=== PATIENT | male | born 1985 ===

== ENCOUNTER 2018-06-10 13:01 | Observation (INO) | payer OTHER ==
[2018-06-10 14:28] LABS: BASO # 0.1 K/uL (0.0-0.2); BASO % 0.8 % (0.0-2.0); EOS # 0.1 K/uL (0.0-0.7); EOS % 1.3 % (0.0-4.0); LYMPH # 2.7 K/uL (1.0-4.3); LYMPH % 32.4 % (20.0-40.0); MEAN CELL VOLUME 93.3 fl (80.0-94.0); MEAN CORPUSCULAR HEMOGLOBIN 31.2 pg (27.0-31.0); MEAN CORPUSCULAR HGB CONC 33.4 g/dL (33.0-37.0); MEAN PLATELET VOLUME 8.5 fl (7.2-11.7); MONO # 0.6 K/uL (0.0-0.8); MONO % 7.8 % (0.0-10.0); NEUT # 4.7 K/uL (1.8-7.0); NEUT % 57.7 % (50.0-75.0); RBC 4.5 Mil/uL (4.40-5.90); RED CELL DISTRIBUTION WIDTH 13.1 % (11.5-14.5); WHITE BLOOD COUNT 8.2 K/uL (4.8-10.8)
[2018-06-10 14:39] LABS: URINE BACTERIA RARE (<OCC); URINE BILIRUBIN NEGATIVE (NEGATIVE); URINE BLOOD NEGATIVE (NEGATIVE); URINE CLARITY CLEAR (Clear); URINE COLOR YELLOW (YELLOW); URINE GLUCOSE (UA) NEG (NEGATIVE); URINE LEUKOCYTE ESTERASE NEG Leu/uL (Negative); URINE PROTEIN NEGATIVE (NEGATIVE)
[2018-06-10 14:42] LABS: INR 1.1; PROTHROMBIN TIME 12.4 Seconds (9.8-13.1)
[2018-06-10 14:45] LABS: PARTIAL THROMBOPLASTIN TIME 33.5 Seconds (25.6-37.1)
--- NOTE | 2018-06-10 14:54 | RAD ---
Date of service: 06/10/2018 HISTORY: back pain COMPARISON: No prior. TECHNIQUE: Chest PA and lateral FINDINGS: LUNGS: No active pulmonary disease. PLEURA: No significant pleural effusion identified. No pneumothorax apparent. CARDIOVASCULAR: No aortic atherosclerotic calcification present. Normal cardiac size. No pulmonary vascular congestion. OSSEOUS STRUCTURES: No significant abnormalities. VISUALIZED UPPER ABDOMEN: Normal. OTHER FINDINGS: None. IMPRESSION: No acute cardiopulmonary disease appreciated.
[2018-06-10 15:08] LABS: BLOOD UREA NITROGEN 19 mg/dl (9-20); CALCIUM 9.4 mg/dL (8.4-10.2); GFR NON-AFRICAN AMERICAN > 60
--- NOTE | 2018-06-10 15:42 | ED PDOC ---
HPI: Back Time Seen by Provider: 06/10/18 13:24 Chief Complaint (Nursing): Back Pain Chief Complaint (Provider): Back pain History Per: Patient History/Exam Limitations: no limitations Onset/Duration Of Symptoms: Persistent Current Symptoms Are (Timing): Still Present Quality Of Discomfort: "Pain" Severity: Moderate Associated Symptoms: None Additional History Per: Patient Additional Complaint(s): 32yo male, comes to ER for evaluation of persistent lower back pain. Patient states he followed up with Dr. Noble for the back pain, and has not taken any medications for the symptoms. He denies any trauma or injury to his back; no complaints of weakness/numbness of lower extremity, bowel or bladder inconctinence, no saddle anesthesia. Patient has no additional complaints. PMD: Dr. Noble Past Medical History Reviewed: Historical Data, Nursing Documentation, Vital Signs Vital Signs: Last Vital Signs Temp 97.7 F 06/10/18 13:09 Pulse 57 L 06/10/18 13:09 Resp 16 06/10/18 13:09 BP 126/75 06/10/18 13:09 Pulse Ox 100 06/10/18 13:09 - Medical History PMH: No Chronic Diseases, Chronic Pain - Surgical History Surgical History: No Surg Hx - Family History Family History: States: No Known Family Hx - Home Medications Home Medications: Ambulatory Orders Medication Instructions Recorded RX: No Known Home Med 06/10/18 - Allergies Allergies/Adverse Reactions: Allergies Allergy/AdvReac Type Severity Reaction Status Date / Time No Known Allergies Allergy Verified 06/10/18 13:09 Review of Systems ROS Statement: Except As Marked, All Systems Reviewed And Found Negative (as per HPI) Genitourinary Male: Negative for: Incontinence Musculoskeletal: Positive for: Back Pain Neurological: Negative for: Weakness, Numbness Physical Exam - Reviewed Nursing Documentation Reviewed: Yes Vital Signs Reviewed: Yes - Physical Exam Appears: Positive for: Non-toxic Head Exam: Positive for: ATRAUMATIC, NORMAL INSPECTION, NORMOCEPHALIC Skin: Positive for: Normal Color Eye Exam: Positive for: Normal appearance, EOMI, PERRL Neck: Positive for: Normal, Painless ROM, Supple Cardiovascular/Chest: Positive for: Regular Rate, Rhythm. Negative for: Murmur, Tachycardia Respiratory: Positive for: Normal Breath Sounds. Negative for: Respiratory Distress Gastrointestinal/Abdominal: Positive for: Normal Exam Back: Positive for: Vertebral Tenderness (lumbar ), Other (paralumbar tenderness). Negative for: L CVA Tenderness, R CVA Tenderness Extremity: Positive for: Normal ROM. Negative for: Tenderness, Pedal Edema, Deformity Neurologic/Psych: Positive for: Alert, Oriented. Negative for: Motor/Sensory Deficits - Laboratory Results Result Diagrams: 06/10/18 13:45 06/10/18 13:45 Lab Results: PT 12.4 Seconds (9.8-13.1) 06/10/18 13:45 INR 1.1 06/10/18 13:45 APTT 33.5 Seconds (25.6-37.1) 06/10/18 13:45 Urine Color Yellow (YELLOW) 06/10/18 13:45 Urine Clarity Clear (Clear) 06/10/18 13:45 Urine pH 5.0 (5.0-8.0) 06/10/18 13:45 Ur Specific [place] 1.026 (1.003-1.030) 06/10/18 13:45 Urine Protein Negative mg/dL (NEGATIVE) 06/10/18 13:45 Urine Glucose (UA) Neg mg/dL (NEGATIVE) 06/10/18 13:45 Urine Ketones Negative mg/dL (NEGATIVE) 06/10/18 13:45 Urine Blood Negative (NEGATIVE) 06/10/18 13:45 Urine Nitrate Negative (NEGATIVE) 06/10/18 13:45 Urine Bilirubin Negative (NEGATIVE) 06/10/18 13:45 Urine Urobilinogen 1.0 mg/dL (0.2-1.0) 06/10/18 13:45 Ur Leukocyte Esterase Neg [place]/uL (Negative) 06/10/18 13:45 Urine RBC (Auto) 3 /hpf (0-3) 06/10/18 13:45 Urine Microscopic WBC 1 /hpf (0-5) 06/10/18 13:45 Urine Bacteria Rare (<OCC) 06/10/18 13:45 - ECG O2 Sat by Pulse Oximetry: 100 (RA) Pulse Ox Interpretation: Normal Medical Decision Making Medical Decision Making: Impression: Acute on chronic back pain Plan: -- Labs -- EKG [address] Tran, who accepts patient for admission due to acute on chronic back pain Plan of care discussed with Dr. Noble, who agrees. Discussed plan for admission with patient, who agrees. Scribe Attestation: Documented by Oralia Romeo acting as a scribe for Olivia Jameson MD Provider Attestation: All medical record entries made by the Scribe were at my direction and personally dictated by me. I have reviewed the chart and agree that the record accurately reflects my personal performance of the history, physical exam, medical decision making, and the department course for this patient. I have also personally directed, reviewed, and agree with the discharge instructions and disposition. Disposition - Clinical Impression Clinical Impression: Back pain - Patient ED Disposition Is Patient to be Admitted: Yes Discussed With DrMago: Viktor Tran Counseled Patient/Family Regarding: Studies Performed, Diagnosis - Disposition Disposition Time: 13:27 Condition: FAIR - Pt Status Changed To: Hospital Disposition Of: Inpatient - Admit Certification Admit to Inpatient:: After my assessment, the patient will require hospitalization for at least two midnights. This is because of the severity of symptoms shown, intensity of services needed, and/or the medical risk in this patient being treated as an outpatient. - POA Present On Arrival: None
--- NOTE | 2018-06-10 16:36 | CP.PCM.CON ---
History of Present Illness - History of Present Illness History of Present Illness: Neurosurgical consult: Dr. Noble Patient is a 32 y/o male c/o severe lower back pain. 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 He describes a marilee hammer falling two stories onto his left side, with the end piercing through his left shoulder and into his left lung. The patient has had progressive lower back pain as a result of the injury, worsening over the past few weeks. He reports severe pain that radiates to his LLE. He has tried and failed conservative means with oral meds and PT. He has had difficulties with his daily activities, especially sitting. He denies LE numbness/tingling/bowel or bladder dysfunction/saddle paresthesias. He also denies CP/SOB/N/V/D/fever/melena/dysuria. PMH: denies PSH: denies meds: none Allergy: NKDA SH: denies ETOH/tobacco/drug use Review of Systems - Review of Systems All systems: reviewed and no additional remarkable complaints except Review of Systems: as per HPI Past Patient History - Past Medical History & Family History Past Family History: Reviewed and not pertinent - Past Social History Smoking Status: Never Smoked - MUSCULOSKELETAL/RHEUMATOLOGICAL Hx Musculoskeletal Disorders: Yes - PSYCHIATRIC Hx Substance Use: No - SURGICAL HISTORY Hx Surgeries: Yes Meds Allergies/Adverse Reactions: Allergies Allergy/AdvReac Type Severity Reaction Status Date / Time No Known Allergies Allergy Verified 06/10/18 13:09 Physical Exam - Constitutional Appears: Well, No Acute Distress - Head Exam Head Exam: ATRAUMATIC, NORMOCEPHALIC - Eye Exam Eye Exam: EOMI, Normal appearance - ENT Exam ENT Exam: Mucous Membranes Moist - Respiratory Exam Respiratory Exam: NORMAL BREATHING PATTERN - Extremities Exam Extremities exam: Positive for: normal inspection - Back Exam Back exam: paraspinal tenderness (left), vertebral tenderness (lumbar) Additional comments: no masses/lesion/deformity sensation intact SP/DP/TN motor intact EHL/FHL/TA/G neg SLR b/l neg clonus - Neurological Exam Neurological exam: Alert, CN II-XII Intact, Oriented x3 - Psychiatric Exam Psychiatric exam: Normal Affect, Normal Mood - Skin Skin Exam: Normal Color, Warm Results - Vital Signs Recent Vital Signs: Last Vital Signs Temp 97.8 F 06/10/18 16:34 Pulse 50 L 06/10/18 16:34 Resp 20 06/10/18 16:34 BP 107/67 06/10/18 16:34 Pulse Ox 98 06/10/18 16:34 - Labs Result Diagrams: 06/11/18 05:35 06/11/18 05:35 Labs: Laboratory Results - last 24 hr 06/10/18 06/10/18 06/10/18 13:45 13:45 13:45 WBC 8.2 RBC 4.50 Hgb 14.0 Hct 42.0 MCV 93.3 MCH 31.2 H MCHC 33.4 RDW 13.1 Plt Count 304 MPV 8.5 Neut % (Auto) 57.7 Lymph % (Auto) 32.4 [place] % (Auto) 7.8 Eos % (Auto) 1.3 Baso % (Auto) 0.8 Neut # (Auto) 4.7 Lymph # (Auto) 2.7 [place] # (Auto) 0.6 Eos # (Auto) 0.1 Baso # (Auto) 0.1 PT 12.4 INR 1.1 APTT 33.5 Sodium 140 Potassium 3.5 L Chloride 101 Carbon Dioxide 23 Anion Gap 20 BUN 19 Creatinine 1.1 Est GFR ( Amer) > 60 Est GFR (Non-Af Amer) > 60 Random Glucose 92 Calcium 9.4 Urine Color Urine Clarity Urine pH Ur Specific [place] Urine Protein Urine Glucose (UA) Urine Ketones Urine Blood Urine Nitrate Urine Bilirubin Urine Urobilinogen Ur Leukocyte Esterase Urine RBC (Auto) Urine Microscopic WBC Urine Bacteria Blood Type Antibody Screen BBK History Checked 06/10/18 06/10/18 13:45 13:45 WBC RBC Hgb Hct MCV MCH MCHC RDW Plt Count MPV Neut % (Auto) Lymph % (Auto) [place] % (Auto) Eos % (Auto) Baso % (Auto) Neut # (Auto) Lymph # (Auto) [place] # (Auto) Eos # (Auto) Baso # (Auto) PT INR APTT Sodium Potassium Chloride Carbon Dioxide Anion Gap BUN Creatinine Est GFR ( Amer) Est GFR (Non-Af Amer) Random Glucose Calcium Urine Color Yellow Urine Clarity Clear Urine pH 5.0 Ur Specific [place] 1.026 Urine Protein Negative Urine Glucose (UA) Neg Urine Ketones Negative Urine Blood Negative Urine Nitrate Negative Urine Bilirubin Negative Urine Urobilinogen 1.0 Ur Leukocyte Esterase Neg Urine RBC (Auto) 3 Urine Microscopic WBC 1 Urine Bacteria Rare Blood Type O POSITIVE Antibody Screen Negative BBK History Checked No verified bt Assessment & Plan (1) Lumbar spondylosis Assessment and Plan: -Dr. Noble proposes lumbar laminectomy at level L4-L5, possible other levels tomorrow AM -Risks/benefits were explained to the patient who expresses understanding and agrees to proceed with surgery -NPO pMN -above d/w Dr. Noble in agreement Status: Acute - Date & Time Date: 06/10/18 Time: 16:00
--- NOTE | 2018-06-10 20:24 | CARD ---
APPROVED REPORT Date of service: 06/10/2018 EKG Measurement Heart [id number] <Conclusion> Sinus bradycardia Moderate voltage criteria for LVH, may be normal variant Abnormal ECG
[2018-06-10] MEDS ORDERED: Potassium Chloride 20 mEq ER Tab PO STA (22:57)
[2018-06-11] MEDS ORDERED: Dextrose 5%/Lactated Ringer's 1,000 ML IV SCH (06:00)
[2018-06-11 06:31] LABS: BASO # 0.1 K/uL (0.0-0.2); BASO % 0.8 % (0.0-2.0); EOS # 0.1 K/uL (0.0-0.7); EOS % 1.6 % (0.0-4.0); HEMOGLOBIN 14.6 g/dL (12.0-18.0); LYMPH # 3.1 K/uL (1.0-4.3); LYMPH % 34.2 % (20.0-40.0); MEAN CELL VOLUME 93.8 fl (80.0-94.0); MEAN CORPUSCULAR HEMOGLOBIN 31.6 pg (27.0-31.0); MEAN CORPUSCULAR HGB CONC 33.7 g/dL (33.0-37.0); MEAN PLATELET VOLUME 8.6 fl (7.2-11.7); MONO # 0.9 K/uL (0.0-0.8); MONO % 10.2 % (0.0-10.0); NEUT # 4.9 K/uL (1.8-7.0); NEUT % 53.2 % (50.0-75.0); RBC 4.62 Mil/uL (4.40-5.90); RED CELL DISTRIBUTION WIDTH 13.3 % (11.5-14.5); WHITE BLOOD COUNT 9.1 K/uL (4.8-10.8)
--- NOTE | 2018-06-11 06:53 | CP.PCM.HP ---
History of Present Illness - History of Present Illness History of Present Illness: HPI: 32 y/o Male with a PMH of chronic pain, presented to ED for evaluation of persistent lower back pain. He sees Dr. Noble, neurosurgery outpatient. No recent trauma reported as per pt. Present on Admission - Present on Admission Any Indicators Present on Admission: No Review of Systems - Review of Systems All systems: reviewed and no additional remarkable complaints except Review of Systems: lower back pain. Past Patient History - Past Medical History & Family History Past Medical History?: No - Past Social History Smoking Status: Never Smoked - MUSCULOSKELETAL/RHEUMATOLOGICAL Hx Musculoskeletal Disorders: Yes Hx Back Pain: Yes - PSYCHIATRIC Hx Substance Use: No - SURGICAL HISTORY Hx Surgeries: Yes - ANESTHESIA Hx Anesthesia: No Hx Anesthesia Reactions: No Hx Malignant Hyperthermia: No Has any member of the family had a problem w/ anesthesia?: No Meds Allergies/Adverse Reactions: Allergies Allergy/AdvReac Type Severity Reaction Status Date / Time No Known Allergies Allergy Verified 06/10/18 13:09 Physical Exam - Constitutional Appears: Well, No Acute Distress - Head Exam Head Exam: ATRAUMATIC, NORMAL INSPECTION, NORMOCEPHALIC - Eye Exam Eye Exam: EOMI, Normal appearance, PERRL Pupil Exam: NORMAL ACCOMODATION, PERRL - ENT Exam ENT Exam: Mucous Membranes Moist, Normal Exam - Neck Exam Neck exam: Positive for: Normal Inspection - Respiratory Exam Respiratory Exam: Clear to Auscultation Bilateral - Cardiovascular Exam Cardiovascular Exam: REGULAR RHYTHM, +S1, +S2 - GI/Abdominal Exam GI & Abdominal Exam: Normal Bowel Sounds, Soft - Extremities Exam Extremities exam: Positive for: normal inspection Additional comments: weakness and painful ROM to BLE noted. - Back Exam Back exam: NORMAL INSPECTION, tenderness Additional comments: painful ROM in the lower back. - Neurological Exam Neurological exam: Alert, CN II-XII Intact, Oriented x3 - Psychiatric Exam Psychiatric exam: Normal Affect, Normal Mood - Skin Skin Exam: Dry, Intact, Normal Color, Warm Results - Vital Signs Recent Vital Signs: Last Vital Signs Temp 97.5 F L 06/11/18 00:41 Pulse 92 H 06/11/18 00:41 Resp 20 06/11/18 00:41 BP 113/70 06/11/18 00:41 Pulse Ox 99 06/11/18 00:41 - Labs Result Diagrams: 06/11/18 05:35 06/10/18 13:45 Labs: Laboratory Results - last 24 hr 06/10/18 06/10/18 06/10/18 13:45 13:45 13:45 WBC 8.2 RBC 4.50 Hgb 14.0 Hct 42.0 MCV 93.3 MCH 31.2 H MCHC 33.4 RDW 13.1 Plt Count 304 MPV 8.5 Neut % (Auto) 57.7 Lymph % (Auto) 32.4 [place] % (Auto) 7.8 Eos % (Auto) 1.3 Baso % (Auto) 0.8 Neut # (Auto) 4.7 Lymph # (Auto) 2.7 [place] # (Auto) 0.6 Eos # (Auto) 0.1 Baso # (Auto) 0.1 PT 12.4 INR 1.1 APTT 33.5 Sodium 140 Potassium 3.5 L Chloride 101 Carbon Dioxide 23 Anion Gap 20 BUN 19 Creatinine 1.1 Est GFR ( Amer) > 60 Est GFR (Non-Af Amer) > 60 Random Glucose 92 Calcium 9.4 Urine Color Urine Clarity Urine pH Ur Specific [place] Urine Protein Urine Glucose (UA) Urine Ketones Urine Blood Urine Nitrate Urine Bilirubin Urine Urobilinogen Ur Leukocyte Esterase Urine RBC (Auto) Urine Microscopic WBC Urine Bacteria Blood Type Blood Type Confirm Antibody Screen BBK History Checked 06/10/18 06/10/18 06/10/18 13:45 13:45 14:30 WBC RBC Hgb Hct MCV MCH MCHC RDW Plt Count MPV Neut % (Auto) Lymph % (Auto) [place] % (Auto) Eos % (Auto) Baso % (Auto) Neut # (Auto) Lymph # (Auto) [place] # (Auto) Eos # (Auto) Baso # (Auto) PT INR APTT Sodium Potassium Chloride Carbon Dioxide Anion Gap BUN Creatinine Est GFR ( Amer) Est GFR (Non-Af Amer) Random Glucose Calcium Urine Color Yellow Urine Clarity Clear Urine pH 5.0 Ur Specific [place] 1.026 Urine Protein Negative Urine Glucose (UA) Neg Urine Ketones Negative Urine Blood Negative Urine Nitrate Negative Urine Bilirubin Negative Urine Urobilinogen 1.0 Ur Leukocyte Esterase Neg Urine RBC (Auto) 3 Urine Microscopic WBC 1 Urine Bacteria Rare Blood Type O POSITIVE Blood Type Confirm O POSITIVE Antibody Screen Negative BBK History Checked No verified bt 06/11/18 05:35 WBC 9.1 RBC 4.62 Hgb 14.6 Hct 43.4 MCV 93.8 MCH 31.6 H MCHC 33.7 RDW 13.3 Plt Count 305 MPV 8.6 Neut % (Auto) 53.2 Lymph % (Auto) 34.2 [place] % (Auto) 10.2 H Eos % (Auto) 1.6 Baso % (Auto) 0.8 Neut # (Auto) 4.9 Lymph # (Auto) 3.1 [place] # (Auto) 0.9 H Eos # (Auto) 0.1 Baso # (Auto) 0.1 PT INR APTT Sodium Potassium Chloride Carbon Dioxide Anion Gap BUN Creatinine Est GFR ( Amer) Est GFR (Non-Af Amer) Random Glucose Calcium Urine Color Urine Clarity Urine pH Ur Specific [place] Urine Protein Urine Glucose (UA) Urine Ketones Urine Blood Urine Nitrate Urine Bilirubin Urine Urobilinogen Ur Leukocyte Esterase Urine RBC (Auto) Urine Microscopic WBC Urine Bacteria Blood Type Blood Type Confirm Antibody Screen BBK History Checked Assessment & Plan (1) Back pain Assessment and Plan: Assessment/Impression/Major Problems Now: 1.) Back Pain -For lumbar surgery with Dr. Noble. -NPO since midnight. -EKG, labs, CXR reviewed: unremarkable. -mild sinus casey at rest, however NSR when awake. -medically cleared for surgery. Status: Acute
[2018-06-11 07:24] LABS: ALB/GLOB RATIO 1.2 (1.0-2.1); ALBUMIN 4.3 g/dL (3.5-5.0); ALT/SGPT 22 U/L (21-72); AST/SGOT 17 U/L (17-59); BLOOD UREA NITROGEN 18 mg/dl (9-20); CALCIUM 9.6 mg/dL (8.4-10.2); GFR NON-AFRICAN AMERICAN > 60
[2018-06-11] MEDS ORDERED: Propofol 10 mg/ml Inj (20 ML) ONE (08:21)
[2018-06-11] MEDS ORDERED: Rocuronium 10 mg/ml (5 ml) ONE (08:21)
[2018-06-11] MEDS ORDERED: Midazolam 2 MG/2 ML VIAL ONE (08:21)
[2018-06-11] MEDS ORDERED: Lidocaine 4% (Laryng-O-Jet) Kit MM ONE (08:21)
[2018-06-11] MEDS ORDERED: Succinylcholine Chloride 20 mg/ml Syr (5 ml) IV ONE (08:24)
[2018-06-11] MEDS ORDERED: Bupivacaine HCl 0.5% PF (30 ml) Inj ONE (08:30)
[2018-06-11] MEDS ORDERED: Lidocaine 2% w Epi 1:100,000 Inj IJ ONE (08:31)
[2018-06-11] MEDS ORDERED: Lactated Ringer's 1,000 ML IV ONE ×2 (09:18)
[2018-06-11] MEDS ORDERED: Dexamethasone 4 mg/1 ml ONE (09:56)
[2018-06-11] MEDS ORDERED: HEMOSTATIC MATRIX 10 ML DIS.NEEDLE TOP ONE (10:00)
[2018-06-11] MEDS ORDERED: Neostigmine 1:1000 (1 mg/ml) Inj ONE (10:11)
[2018-06-11] MEDS ORDERED: Lactated Ringer's 500 ML IV ONE (10:18)
[2018-06-11] MEDS ORDERED: Sodium Chloride 0.9% 500 ML IV ONE (10:18)
[2018-06-11] MEDS ORDERED: Bupivacaine 0.5% Inj(30mL) IJ ONE ×2 (10:19→10:31)
[2018-06-11] MEDS ORDERED: Oxycodone/Acetaminophen 5/325 mg Tab PO PRN ×2 (10:44)
--- NOTE | 2018-06-11 10:54 | PCM.SURG1 ---
Surgeon's Initial Post Op Note - Surgeon's Notes Surgeon: Burton Noble MD [employer] Engineer: Sumanth Cornell PA-C Type of Anesthesia: General Endo Anesthesia Administered By: Sesar Mojica MD Pre-Operative Diagnosis: Lumbar spondylosis Operative Findings: see complete operative report Post-Operative Diagnosis: L4-L5 lumbar spondylosis Operation Performed: L4-L5 lumbar laminectomy and postero-lateral fusion Specimen/Specimens Removed: none Estimated Blood Loss: EBL {In ML}: 10 Blood Products Given: N/A Drains Used: Raúl Rodriguez (x1 Left) Post-Op Condition: Good Date of Surgery/Procedure: 06/11/18 Time of Surgery/Procedure: 09:18
--- NOTE | 2018-06-11 11:11 | RAD ---
PROCEDURE: HISTORY: As above COMPARISON: None TECHNIQUE: Total fluoroscopic time utilized during the procedure: 2.7 seconds ; 0.93 mGy cm 2 FINDINGS: Submitted images from the current procedure: 1 Please refer to the physician's notes performing the procedure. IMPRESSION: Less than 1 hour fluoroscopic time utilized during performance of the procedure
[2018-06-11] MEDS: HYDROmorphone 0.5 mg/0.5 ml ISec IVP PRN ×6 (11:37→12:20)
[2018-06-11] MEDS: Lactated Ringer's 1,000 ML IV SCH ×2 (13:25→20:09)
[2018-06-11] MEDS: ceFAZolin 1 GM in Sodium Chloride 0.9% 100 ML IVPB SCH (16:20)
[2018-06-11] MEDS: Morphine 5 MG/ML SYRINGE IVP PRN (20:02)
[2018-06-11] MEDS ORDERED: Docusate-Senna 50 mg-8.6 mg Tab PO SCH (22:00)
[2018-06-12] MEDS: ceFAZolin 1 GM in Sodium Chloride 0.9% 100 ML IVPB SCH ×3 (00:21→16:27)
[2018-06-12] MEDS: Morphine 5 MG/ML SYRINGE IVP PRN (00:22)
[2018-06-12] MEDS: Lactated Ringer's 1,000 ML IV SCH ×2 (01:37→08:27)
--- NOTE | 2018-06-12 01:39 | OP ---
PROCEDURE DATE: 06/11/2018 PREOPERATIVE DIAGNOSIS: Lumbar herniated disk at L4-L5. POSTOPERATIVE DIAGNOSIS: Lumbar herniated disk at L4-L5. PROCEDURE: L4-L5 lumbar laminotomy and decompression, L4-L5 posterolateral fusion. SURGEON: Burton Noble MD PRIVATE INVESTIGATOR SURVEILLANCE: Sumanth Cornell, physician press assistant who helped me perform the surgery, stayed throughout the case from the beginning to the end. DESCRIPTION OF PROCEDURE: The patient was brought to the operating room, anesthetized with general endotracheal anesthesia, placed in the prone position on a Raúl table. Care was taken to protect all pressure points. Back of the lumbar area was thoroughly prepped and draped in a sterile manner nicely. After prepping and draping the area, skin has been incised. Bleeding skin has been controlled with bipolar manager cable. After using a Bovie manager cable, paraspinal muscles have been detached from the attachments of spinous process and lamina of L5-S1. Identification of levels has been done with the help of fluoroscopy and also by using microscopic magnification and illumination. Rest of operation has been carried out. Deep retractors have been applied. By using Leksell rongeur, the spinous process of L4-L5 has been removed. By using high-speed drill, the lamina of L4-L5, medial part of the facets of L5-S1 has been drilled. Drilling was continued until top and bottom of the ligamentum is seen. Drilling was also continued on the medial part of the facets until the turn of ligament was seen. Once this had been done, thinned out the lamina, medial part of the facets and ligamentum flavum had been removed. Nerve root and neural tube were retracted medially. There was central herniated disk noted. However, there is no extruded fragment noted, decompression has been achieved by bilateral laminectomy in this area and the facet joints have been found to be open and indicating microinstability. Hence, the lateral aspect of the facet joint and transverse process have been decorticated, demineralized bone placed in the area achieving a posterolateral fusion. Hemostasis thus achieved. Raúl drain placed in the wound, brought out through a separate stab neck skin incision. Muscles and fascia were closed with 1 Vicryl, subcutaneous tissue with 3-0 Vicryl, skin has been done with intradermal 3-0 Vicryl stitches. The patient tolerated the procedure. After procedure, mobilized to the recovery room in stabilized condition. Burton Noble MD
[2018-06-12 07:09] LABS: HEMOGLOBIN 12.8 g/dL (12.0-18.0); MEAN CELL VOLUME 93.3 fl (80.0-94.0); MEAN CORPUSCULAR HGB CONC 33.3 g/dL (33.0-37.0); RBC 4.14 Mil/uL (4.40-5.90); RED CELL DISTRIBUTION WIDTH 13.4 % (11.5-14.5); WHITE BLOOD COUNT 14.9 K/uL (4.8-10.8)
[2018-06-12 07:29] LABS: BLOOD UREA NITROGEN 14 mg/dl (9-20); CALCIUM 9.3 mg/dL (8.4-10.2); GFR NON-AFRICAN AMERICAN > 60
[2018-06-12 08:13] VITALS: RESP 20
--- NOTE | 2018-06-12 10:16 | CP.PCM.PN ---
Subjective - Date & Time of Evaluation Date of Evaluation: 06/12/18 Time of Evaluation: 08:30 - Subjective Subjective: Patient seen and examined at bedside comfortable. Pain is well controlled. No acute events overnight. He notes radiating pain to LLE has resolved. Denies CP/SOB/dizziness/fever. Objective - Vital Signs/Intake and Output Vital Signs (last 24 hours): Temp Pulse Resp BP Pulse Ox 97.9 F 61 20 108/63 96 06/12/18 08:12 06/12/18 08:12 06/12/18 08:12 06/12/18 08:12 06/12/18 08:12 Intake and Output: 06/12/18 06/12/18 06:59 18:59 Intake Total 1200 Output Total 40 Balance 1160 - Medications Medications: Current Medications Acetaminophen (Tylenol 325mg Tab) 650 mg PO Q4 PRN PRN Reason: Fever 101 degrees fahrenheit Cyclobenzaprine HCl (Flexeril) 10 mg PO Q8 PRN PRN Reason: Muscle spasm Hydromorphone HCl (Dilaudid) 1 mg IVP Q4 PRN PRN Reason: Pain, severe (8-10) Cefazolin Sodium 1 gm/ Sodium (Chloride) 100 mls @ 100 mls/hr IVPB Q8 ANNMARIE; Protocol Stop: 06/13/18 17:01 Last Admin: 06/12/18 08:28 Dose: 100 mls/hr Lactated Ringer's (Lactated Ringer's) 1,000 mls @ 100 mls/hr IV .Q10H ANNMARIE Last Admin: 06/12/18 08:27 Dose: Not Given Morphine Sulfate (Morphine) 2 mg IVP Q4 PRN PRN Reason: Pain, severe (8-10) Last Admin: 06/12/18 00:22 Dose: 2 mg Ondansetron HCl (Zofran Inj) 4 mg IVP ONCE PRN PRN Reason: Nausea/Vomiting Oxycodone/Acetaminophen (Percocet 5/325 Mg Tab) 1 tab PO Q4 PRN PRN Reason: Pain, Mild (1-3) Stop: 06/14/18 10:45 Oxycodone/Acetaminophen (Percocet 5/325 Mg Tab) 2 tab PO Q4 PRN PRN Reason: Pain, moderate (4-7) Stop: 06/14/18 10:45 Last Admin: 06/12/18 08:24 Dose: 2 tab Senna/Docusate Sodium (Senokot S 50 Mg-8.6 Mg) 2 tab PO HS ANNMARIE Last Admin: 06/11/18 21:51 Dose: 2 tab - Labs Labs: 06/12/18 06:15 06/12/18 06:15 PT 12.4 Seconds (9.8-13.1) 06/10/18 13:45 INR 1.1 06/10/18 13:45 APTT 33.5 Seconds (25.6-37.1) 06/10/18 13:45 - Back Exam Additional comments: Mild jesusita-incision tenderness 2nd to surgery Dressings CDI VIELKA drain intact with minimal bloody drainage (40cc in 24 hrs) sensation intact SP/DP/TN motor intact EHL/FHL/TA/G neg clonus Assessment and Plan (1) Lumbar spondylosis Assessment & Plan: POD# 1 s/p L4-5 laminotomy -drain removed, compressive dressings applied -CT lumbar spine shows no acute fx -PT/OT -abd binder for comfort -neurosurgically stable for d/c to home -f/u in office in 7-10 days -above d/w Dr. Noble in agreement Status: Acute Radiology Interpretation - Notes: Notes:: Accession No. : [id number] Patient Name / ID : EILEEN CACERES / [id number] Exam Date : 06/12/2018 09:05:47 ( Approved ) Study Comment : Sex / Age : M / 32Y Creator : Lisseth Aggarwal MD Dictator : Lisseth Aggarwal MD Academic Intern : Concrete Laborer : Lisseth Aggarwal MD Approver2 : Report Date : 06/12/2018 11:06:41 My Comment : Date of service: 06/12/2018 PROCEDURE: CT Lumbar Spine without contrast HISTORY: r/o spine fx, s/p L4-5 laminectomy COMPARISON: None available. TECHNIQUE: Axial computed tomography images were obtained of the lumbar spine without the use of intravenous contrast. Coronal and sagittal reformatted images were created and reviewed. Radiation dose: Total exam DLP = 720.56 mGy-cm. This CT exam was performed using one or more of the following dose reduction techniques: Automated exposure control, adjustment of the mA and/or kV according to patient size, and/or use of iterative reconstruction technique. FINDINGS: VERTEBRAE: There is normal alignment of the lumbar vertebral bodies. There is normal lumbar lordosis. There is no acute fracture, spondylolysis or spondylolisthesis. Bone mineralization is normal. Status post laminectomy at L4, there are expected postoperative changes in the midline soft tissues of the lower back with several foci of air in the deep soft tissues at L1, L2 and L3. There is also small amount of postoperative air in the posterior epidural space from L3 to L5. Evaluation of the spinal canal is limited on noncontrast CT examination. A spinal drain terminates in the right dorsal epidural space at L5. DISCS/SPINAL CANAL/NEURAL FORAMINA: L1-2: No disc herniation, neural foraminal or spinal canal stenosis. L2-3: No disc herniation, neural foraminal or spinal canal stenosis. L3-4: Mild posterior disc bulge without spinal canal stenosis or neural foraminal narrowing. L4-5: Diffuse posterior disc bulge with course annular calcification posterior inferiorly indents the ventral thecal sac and in conjunction with mild ligamentum flavum infolding result in mild spinal canal stenosis. Mild bilateral facet arthropathy contribute to moderate neural foraminal narrowing. L5-S1: Posterior disc bulge with superimposed small left foraminal disc protrusion without central spinal canal stenosis. Mild bilateral facet arthropathy contribute to moderate left neural foraminal narrowing. No central spinal canal stenosis. PARASPINAL SOFT TISSUES: The paraspinous soft tissues are normal. Imaged portion of the retroperitoneum is within normal limits. OTHER FINDINGS: None. IMPRESSION: 1. Status post laminectomy at L4, expected postoperative changes in the midline posterior soft tissues with air in the deep dorsal soft tissues his and small amount of air in the dorsal epidural space. A surgical drain terminates in the right dorsal epidural space at L5. 2. Mild degenerative disc disease at L4-5 with diffuse posterior disc bulge and course annular calcification posterior inferiorly which indents the ventral thecal sac and in conjunction with mild ligamentum flavum infolding result in mild spinal canal stenosis. Mild bilateral facet arthropathy contribute to moderate neural foraminal narrowing.
--- NOTE | 2018-06-12 11:12 | CT ---
Date of service: 06/12/2018 PROCEDURE: CT Lumbar Spine without contrast HISTORY: r/o spine fx, s/p L4-5 laminectomy COMPARISON: None available. TECHNIQUE: Axial computed tomography images were obtained of the lumbar spine without the use of intravenous contrast. Coronal and sagittal reformatted images were created and reviewed. Radiation dose: Total exam DLP = 720.56 mGy-cm. This CT exam was performed using one or more of the following dose reduction techniques: Automated exposure control, adjustment of the mA and/or kV according to patient size, and/or use of iterative reconstruction technique. FINDINGS: VERTEBRAE: There is normal alignment of the lumbar vertebral bodies. There is normal lumbar lordosis. There is no acute fracture, spondylolysis or spondylolisthesis. Bone mineralization is normal. Status post laminectomy at L4, there are expected postoperative changes in the midline soft tissues of the lower back with several foci of air in the deep soft tissues at L1, L2 and L3. There is also small amount of postoperative air in the posterior epidural space from L3 to L5. Evaluation of the spinal canal is limited on noncontrast CT examination. A spinal drain terminates in the right dorsal epidural space at L5. DISCS/SPINAL CANAL/NEURAL FORAMINA: L1-2: No disc herniation, neural foraminal or spinal canal stenosis. L2-3: No disc herniation, neural foraminal or spinal canal stenosis. L3-4: Mild posterior disc bulge without spinal canal stenosis or neural foraminal narrowing. L4-5: Diffuse posterior disc bulge with course annular calcification posterior inferiorly indents the ventral thecal sac and in conjunction with mild ligamentum flavum infolding result in mild spinal canal stenosis. Mild bilateral facet arthropathy contribute to moderate neural foraminal narrowing. L5-S1: Posterior disc bulge with superimposed small left foraminal disc protrusion without central spinal canal stenosis. Mild bilateral facet arthropathy contribute to moderate left neural foraminal narrowing. No central spinal canal stenosis. PARASPINAL SOFT TISSUES: The paraspinous soft tissues are normal. Imaged portion of the retroperitoneum is within normal limits. OTHER FINDINGS: None. IMPRESSION: 1. Status post laminectomy at L4, expected postoperative changes in the midline posterior soft tissues with air in the deep dorsal soft tissues his and small amount of air in the dorsal epidural space. A surgical drain terminates in the right dorsal epidural space at L5. 2. Mild degenerative disc disease at L4-5 with diffuse posterior disc bulge and course annular calcification posterior inferiorly which indents the ventral thecal sac and in conjunction with mild ligamentum flavum infolding result in mild spinal canal stenosis. Mild bilateral facet arthropathy contribute to moderate neural foraminal narrowing.
[2018-06-12 15:33] VITALS: O2SAT 98
[2018-06-12 15:41] VITALS: PULSE 66; TEMP 98.7
[2018-06-12 16:18] VITALS: BP 115/70
== END 2018-06-12 20:03 | disposition home or self-care (01) ==
LOC: H.ER 13:01 → INTOOBSV 13:27 → H.ERHOLD 13:27 → H.MEDSURG1 16:10
PROVIDERS: ADMIT Family Medicine; ATTEND Family Medicine
DX: M51.26 Other intervertebral disc displacement, lumbar region (principal); M47.816 Spondylosis without myelopathy or radiculopathy, lumbar region; G89.29 Other chronic pain; Z87.828 Personal history of other (healed) physical injury and trauma
CPT/HCPCS: 36415; 63030; 71046; 72131; 76000; 80048; 80053; 81003; 85025; 85027; 85610; 85730; 86850; 86900; 93005; 97161; 97166; 97530; 99283; C1713; C2615; G0378; G8978; G8979; G8987; G8988; G8989; J0690; J1100; J1170; J2001; J2250; J2270; J2704; J2710; J2765; J3010; J7030; J7120